=== PATIENT | female | born 1955 | race Caucasian/White ===

== ENCOUNTER 2021-05-25 07:53 | Outpatient (CLI) | payer MEDICARE, SELFPAY ==
--- NOTE | ~2021-05-25 | XR_ITS ---
EXAMINATION: XR hip RT min 2V DATE: 05/25/2021 08:17 INDICATION: Right hip pain. TECHNIQUE: 2 views of right hip were obtained. COMPARISON: None. FINDINGS: Bone alignment is normal. No fracture. There is mild right hip osteoarthritis. IMPRESSION: 1. Mild right hip osteoarthritis. Reviewed, dictated and finalized at location [facility]. [facility]
== END 2021-05-25 07:54 ==
DX: M16.11 Unilateral primary osteoarthritis, right hip (principal)
CPT/HCPCS: 73502

== ENCOUNTER 2023-01-23 08:00 | Outpatient (NON) | payer MEDICARE, SELFPAY | END 2023-01-23 08:01 | disposition home or self-care (01) | PROVIDERS: PCP Physician Assistant; Visit Provider Internal Medicine Gastroenterology | DX: Z12.11 Encounter for screening for malignant neoplasm of colon (principal) | CPT/HCPCS: 88305 ==

== ENCOUNTER 2023-01-23 08:38 | Day surgery (SDC) | payer MEDICARE, SELFPAY ==
[2023-01-10 09:55] VITALS: BMI 37.3
--- NOTE | 2023-01-22 12:47 | WPDANESEPPF ---
Anes - Initial Pre Proc Eval Procedure: Operation Date: 01/23/23 10:30 Proposed Procedures p Esophagogastroduodenoscopy - Rohan Timmons MD s Screening Colonoscopy - Rohan Timmons MD Date/Time: 01/22/23 12:47 Surgeon: Rohan Timmons MD Pre Op Diagnosis: Gerd w/o Esophagitis, Neoplasm Screening Patient Data Age: 67 Gender: F Height: 1.68 m Weight: 105 kg Allergies Allergy/AdvReac Type Severity Reaction Status Date / Time No Known Allergies Allergy Unverified 01/01/23 13:09 Home Medications Medication Instructions Recorded Confirmed Type sodium,potassium,mag sulfates 17.5 See Rx Instructions PO .COMPLEX 01/01/23 Rx gram-3.13 gram-1.6 gram oral soln #354 mL (Suprep Bowel Prep Kit) Patient hx anesthesia problems: none Family hx anesthesia problems: none Results Review: All pre-operative results and documents have been reviewed as part of the pre-operative evaluation. FOR[facility]LY [facility] Past Medical History Medical History (Updated 01/22/23 @ 12:48 by Jean Marie Engel MD) Back pain Hyperlipidemia Obesity PUD (peptic ulcer disease) Social History Social History Smoking packs per day: 1 Smoking cigarettes per day: 20.0 Years smoked: 50 Smoking pack-years: 50.00 Smoking status: Current every day smoker Tobacco type: cigarettes Alcohol intake: never Substance use: never Substance use type: does not use Living arrangements: alone Spiritual care concerns: No Anes - Eval Final PreProcedure Day of Procedure 01/22/23 12:47 Patient weight: obese Heart: regular rate and rhythm Lungs: clear to auscultation and normal air movement Airway: Mallampati scale class II Neurological: alert and oriented Last oral intake: >/= 8 hours ASA classification: III Emergent: no Anesthetic plan: proceed Anesthesia type and monitoring: general GIVS Results Review: All pre-operative results and documents have been reviewed as part of the pre-operative evaluation. Informed Consent: The patient's anesthetic plan and its attendant risks and benefits were discussed with the patient/family/POA. Questions were solicited and answers provided to the satisfaction of the patient/family/POA.
[2023-01-23 09:35] VITALS: BP 139/82; PULSE 95; RESP 18; TEMP 37; O2SAT 96
--- NOTE | 2023-01-23 10:05 | PM.HPGS ---
History of Present Illness History of Present Illness Consent: Risks, benefits, and alternatives have been discussed and questions answered. Patient agrees to proceed with procedure. Chief complaint: Epigastric pain, Neoplasm Screening Narrative: Saray Woodward is a 67 year old female Referred for both colonoscopy an EGD. Patient states that she has a long history of abdominal complaints. She has history of irritable bowel some with alternating diarrhea and constipation. She gives a history of a perforated peptic ulcer in the . Apparently this was treated in [place]. Since that time she has been on proton pump inhibitors. She continues to complain of intermittent epigastric pain that worsens after eating. Currently on generic Nexium. She continues to have symptoms and for this reason was placed on supplemental Pepcid. Patient denies any dysphagia or obvious bleeding. In the past was told she had H pylori but over the last 10 years follow up testing has revealed no evidence of recurrence of this infection. Patient reports most recent endoscopy 10 years ago performed elsewhere in [facility] of revealed gastritis and perhaps recurrent ulcerations. Patient's family history is noncontributory. Review of Systems Review of Systems: Review of systems noncontributory. COUNTS INCLUDE 234 BEDS AT THE [facility] Past Medical History Medical History (Updated 01/23/23 @ 10:08 by Rohan Timmons MD) Back pain Hyperlipidemia Obesity PUD (peptic ulcer disease) Social History Social History Smoking packs per day: 1 Smoking cigarettes per day: 20.0 Years smoked: 50 Smoking pack-years: 50.00 Smoking status: Current every day smoker Tobacco type: cigarettes Alcohol intake: never Substance use: never Substance use type: does not use Living arrangements: alone Spiritual care concerns: No Meds Home Medications and Allergies Home Medications Medication Instructions Recorded Confirmed Type sodium,potassium,mag sulfates 17.5 See Rx Instructions PO .COMPLEX 01/01/23 01/23/23 Rx gram-3.13 gram-1.6 gram oral soln #354 mL (Suprep Bowel Prep Kit) Allergies Allergy/AdvReac Type Severity Reaction Status Date / Time No Known Allergies Allergy Unverified 01/23/23 10:06 Exam Narrative: Physical exam reveals patient to be alert. Vital signs stable. HEENT exam is unremarkable. Patient is anicteric. Lungs are clear to auscultation and percussion. Heart is without murmur or extra sounds. Abdomen bowel sounds present soft no localized masses. Patient reports tenderness in the epigastric area digital rectal exam is normal. Assessment and Plan Assessment and plan (1) Epigastric abdominal pain: Code(s): R10.13 - Epigastric pain Status: Acute Assessment and Plan: Patient with ongoing epigastric pain. Patient has a history of gastritis at 1 point had a history of a perforated peptic ulcer. Agree with limiting NSAIDs. Patient should continue PPI such as Nexium 40mg p.o. daily. Further recommendations will be given after endoscopy. (2) IBS (irritable bowel syndrome): Code(s): K58.9 - Irritable bowel syndrome without diarrhea Status: Acute Assessment and Plan: Patient has alternating diarrhea and constipation is felt to have underlying irritable bowel syndrome. Fiber supplementation with FiberCon 2 tabs p.o. b.i.d. initially is advised further recommendations may be given after endoscopy. (3) Encounter for screening colonoscopy: Code(s): Z12.11 - Encounter for screening for malignant neoplasm of colon Status: Acute Assessment and Plan: Patient presents for screening colonoscopy. Further recommendations will be given after endoscopy.
[2023-01-23] MEDS: LACTATED RINGERS 1,000 ML 150 ML IV CONT (10:10)
[2023-01-23 11:40] VITALS: BP 117/77; PULSE 76; RESP 16; O2SAT 95
[2023-01-23 11:50] VITALS: BP 131/72; PULSE 74; RESP 16; O2SAT 98
[2023-01-23 12:00] VITALS: BP 131/73; PULSE 72; RESP 16; O2SAT 96
--- NOTE | 2023-01-23 12:53 | WPDANESPN ---
Anes - Prog Note Post-Op Date/Time: 01/23/23 12:53 Cardiovascular status: normal Respiratory status: normal Airway patency: baseline Mental status: baseline Post-Op hydration status: normal Vital Signs: Last Vital Signs Temp 37.0 C 01/23/23 09:35 Pulse 72 01/23/23 12:00 Resp 16 01/23/23 12:00 BP 131/73 01/23/23 12:00 Pulse Ox 96 01/23/23 12:00 O2 Del Method Room Air 01/23/23 12:00 Pain Score (VAS): 0 I/O: Intake & Output 01/22/23 01/23/23 01/23/23 23:59 07:59 15:59 Intake Total 700 Balance 700 Post-procedural complaints: none Patient Feedback: Patient satisfied with anesthetic care.
== END 2023-01-23 12:13 | disposition home or self-care (01) ==
PROVIDERS: PCP Physician Assistant; Visit Provider Internal Medicine Gastroenterology
PROC: 0DJ08ZZ Inspection of Upper Intestinal Tract, Via Natural or Artificial Opening Endoscopic (ICD-10-PCS; CPT 43235; principal; 2023-01-23 10:30)
PROC: 0DJD8ZZ Inspection of Lower Intestinal Tract, Via Natural or Artificial Opening Endoscopic (ICD-10-PCS; CPT 45378; 2023-01-23 10:30)
DX: Z12.11 Encounter for screening for malignant neoplasm of colon (principal)
CPT/HCPCS: 45385; 45381